=== PATIENT | male | born 1990 ===

== ENCOUNTER 2019-01-16 22:43 | Emergency (ER) | payer MEDICAID ==
[2019-01-17 00:33] LABS: Bilirubin,Urine NEG (Negative); Blood,Urine NEG (Negative); Color,Urine Straw (Yellow); Mucus,Urine FEW /HPF; Protein,Urine <15 mg/dL mg/dL (Negative); RBC,Urine < 1.0 /HPF (0.0-6.0); Urobilinogen,Urine < 2.0 mg/dL (<2.0)
[2019-01-17 00:48] LABS: Basophils % (Auto) 0.6 % (0.0-1.8); Eosinophils # (Auto) 0.1 K/mm3 (0.0-0.4); Eosinophils % (Auto) 2.2 % (0.0-4.3); Hematocrit 40.8 % (35.5-45.6); Hemoglobin 14.1 gm/dl (11.8-15.2); Lymphocytes # (Auto) 2.5 K/mm3 (1.2-5.4); Lymphocytes % (Auto) 47.5 % (13.4-35.0); Mean Corpuscular HGB Conc 35 % (32-34); Mean Corpuscular Volume 84 fl (84-94); Monocytes # (Auto) 0.3 K/mm3 (0.0-0.8); Monocytes % (Auto) 6.3 % (0.0-7.3); Platelet Count 177 K/mm3 (140-440); Red Blood Count 4.83 M/mm3 (3.65-5.03); Red Cell Distribution Width 14.7 % (13.2-15.2)
[2019-01-17 01:01] LABS: BUN/Creatinine Ratio 8; Blood Urea Nitrogen 9 mg/dL (9-20); Calcium 9.2 mg/dL (8.4-10.2); Hemolysis Index 13
[2019-01-17] MEDS ORDERED: K-DUR PO ONE (01:08)
[2019-01-17 01:14] LABS: Amphetamine Screen,Urine PRESUMPTIVE NEGATIVE; Benzodiazepines Screen,Urine PRESUMPTIVE NEGATIVE; Cannabinoid Screen,Urine PRESUMPTIVE NEGATIVE; Cocaine Screen,Urine PRESUMPTIVE NEGATIVE; Methadone Screen,Urine PRESUMPTIVE NEGATIVE; Opiate Screen,Urine PRESUMPTIVE NEGATIVE
--- NOTE | 2019-01-17 01:37 | Emergency Department Report ---
HPI - General Chief Complaint: Psych Time Seen by Provider: 01/16/19 23:01 - HPI HPI: 28-year-old -[place] male presents to the emergency department via police after he got into an altercation with his father just prior to arrival. The patient says that he is unsure what they were arguing about but he thinks it is regarding using a bulk intake worker. He admits to breaking down or taking down his father's door. The police were called because the father said that the patient was making threats towards him. The patient does admit to making a sweat once again says he is unsure what he said and says that he does not remember most of the altercation. He has a diagnosed history of schizoaffective disorder for which she takes Haldol and Depakote and Cogentin. He denies any suicidal ideations. He does admit to some occasional auditory and visual hallucinations but nothing currently. ED Past Medical Hx - Past Medical History Hx Psychiatric Treatment: Yes (schizo affective disorder) - Social History Smoking Status: Current Every Day Smoker Substance Use Type: None - Medications Home Medications: Home Medications Medication Instructions Recorded Confirmed Last Taken Type Benztropine [Cogentin] 2 mg PO BID 01/17/19 01/17/[address] [Depakote Dr] 1,250 tab PO HS 01/17/19 01/17/19 Unknown History Haloperidol Decanoate [Haldol 100 mg IM QMONTH 01/17/19 01/17/19 Unknown History Decanoate] ED Review of Systems ROS: Stated complaint: MH EVALUATION Other details as noted in HPI Comment: All other systems reviewed and negative Constitutional: denies: chills, fever Eyes: denies: eye pain, vision change ENT: denies: ear pain, throat pain Respiratory: denies: cough, shortness of breath Cardiovascular: denies: chest pain, palpitations Gastrointestinal: denies: abdominal pain, vomiting Genitourinary: denies: dysuria, discharge Musculoskeletal: denies: back pain, arthralgia Skin: denies: rash, lesions Neurological: denies: headache, weakness Psychiatric: other (violent and/or aggressive behavior). denies: suicidal thoughts Physical Exam - Physical Exam Vital Signs: Vital Signs 01/16/19 01/16/19 01/16/19 22:48 23:32 23:56 Temperature 98.1 F 98.1 F 98.6 F Pulse Rate 76 74 98 H Respiratory 18 16 15 Rate Blood Pressure 158/99 158/99 Blood Pressure 154/93 [Right] O2 Sat by Pulse 96 96 100 Oximetry Physical Exam: GENERAL: The patient is well-developed well-nourished. HEENT: Normocephalic. Atraumatic. Patient has moist mucous membranes. EYES: Extraocular motions are intact. NECK: Supple. Trachea is midline. CHEST/LUNGS: Clear to auscultation. There is no respiratory distress noted. HEART/CARDIOVASCULAR: Regular. There is no tachycardia. There is no obvious murmur. ABDOMEN: Abdomen is soft, nontender. Patient has normal bowel sounds. There is no abdominal distention. SKIN: Skin is warm and dry. NEURO: The patient is awake, alert, and oriented. The patient is cooperative. The patient has no focal neurologic deficits. The patient has normal speech. MUSCULOSKELETAL: There is no tenderness or deformity. There is no limitation range of motion. There is no evidence of acute injury. ED Course Vital Signs 01/16/19 01/16/19 01/16/19 22:48 23:32 23:56 Temperature 98.1 F 98.1 F 98.6 F Pulse Rate 76 74 98 H Respiratory 18 16 15 Rate Blood Pressure 158/99 158/99 Blood Pressure 154/93 [Right] O2 Sat by Pulse 96 96 100 Oximetry ED Medical Decision Making - Lab Data Result diagrams: 01/17/19 00:23 01/17/19 00:23 - Medical Decision Making This patient came to the emergency department via police after he had some type of altercation with his father. He admits to destroying some of the property in the house including breaking down a door. The patient also admits to making some type of threat towards his father. However the patient also says that he does not truly remember the altercation. He is currently calm and appropriate. It however it is concerning that he could have this aggressive and violent behavior and either block out the memory of it would be so nonchalant regarding it. His father called the police because of his behavior and the patient still lives with his father. For these reasons the patient has been made a 1013. Labs have been unremarkable. Vital signs stable throughout his ED course. The patient is medically cleared for psychiatric placement if necessary. - Differential Diagnosis schizophrenia, schizoaffective disorder, bipolar disorder, substance abuse Critical Care Time: No Critical care attestation.: If time is entered above; I have spent that time in minutes in the direct care of this critically ill patient, excluding procedure time. ED Disposition Clinical Impression: Aggressive behavior, Threatening to others Schizoaffective disorder Qualifiers: Schizoaffective disorder type: unspecified Qualified Code(s): F25.9 - Schizoaffective disorder, unspecified Disposition: [id number]/TX-65 PSY HOSP/PSY UNIT Is pt being admited?: No Condition: Stable Referrals: EDWINA MARY MD [Primary Care Provider] - 3-5 Days Time of Disposition: 02:24
[2019-01-17] MEDS ORDERED: GEODON ONE (06:38)
[2019-01-17] MEDS ORDERED: GEODON PO SCH (10:00)
[2019-01-17] MEDS ORDERED: COGENTIN PO SCH (10:00)
[2019-01-17 14:57] LABS: Alanine Aminotransferase 11 units/L (7-56)
--- NOTE | 2019-01-17 15:06 | Consultation ---
History of Present Illness - Reason for Consult Consult date: 01/17/19 Reason for consult: Mental Health Evaluation Requesting physician: GRACE SHOEMAKER - Chief Complaint Chief complaint: "I blacked out" - History of Present Psychiatric Illness 28-year-old -[place] male who presented to the ER for aggressive behavior with his father. Today the patient is calm and cooperative during the assessment. He stated that he got into an argument with his father and was brought to the ER. He stated that he cannot remember everything that happened, because he "blacked out." He stated that his relationship with his father is "up and down." He stated that he do not feel good about what happened prior to his arrival to the ER. He stated that he has hx of Schizoaffective DO, but denies that he was having a crisis. He stated that he is compliant with his medications. He stated that he will be going to [facility] for outpatient psy services in the future. He denies SI/HI's and AVH's. He denies a poor appetite and erratic sleep. Medications and Allergies Allergies Allergy/AdvReac Type Severity Reaction Status Date / Time No Known Allergies Allergy Verified 01/17/19 01:13 Home Medications Medication Instructions Recorded Confirmed Last Taken Type Benztropine [Cogentin] 2 mg PO BID 01/17/19 01/17/19 Unknown History Divalproex [[place]a Peacock] 1,250 tab PO HS 01/17/19 01/17/19 Unknown History Haloperidol Decanoate [Haldol 100 mg IM QMONTH 01/17/19 01/17/19 Unknown History Decanoate] Ziprasidone [Geodon] 1 tab PO DAILY 01/17/19 01/17/19 Unknown History Active Meds: Active Medications Benztropine Mesylate (Cogentin) 1 mg PO HS AKSHAT Ziprasidone (Geodon) 60 mg PO HS AKSHAT Past psychiatric history - Past Medical History Past Medical History: No medical history Past Surgical History: No surgical history - past Psychiatric treatment and history psychiatric treatment history: Seen in the outpatient setting for mental health. Denies a fam psy hx. - Social History Social history: lives with family Mental Status Exam - Vital signs Last Vital Signs Temp 98.0 F 01/17/19 09:00 Pulse 73 01/17/19 09:00 Resp 18 01/17/19 09:00 BP 137/85 01/17/19 09:00 Pulse Ox 98 01/17/19 09:00 - Exam Narrative exam: MSE: Appearance: calm, cooperative Behavior: regular eye contact Speech: regular rate and tone Mood: "okay" Affect: congruent to mood Thought Process: circumstantial Thought Content: denies SI/HI's with AVH's Motor Activity: ambulatory Cognition: A/Ox 3 Insight: variable to fair Judgment: variable to fair Results Result Diagrams: 01/17/19 00:23 01/17/19 00:23 Abnormal lab results 01/17/19 01/17/19 Range/Units 00: 00:23 MCHC 35 H (32-34) % Lymph % (Auto) 47.5 H (13.4-35.0) % Potassium 3.4 L (3.6-5.0) mmol/L All other labs normal. Assessment and Plan Assessment and plan: Impression: Today the patient is calm and cooperative during the assessment. Recommendation/Plan: Reevaluate the patient's 1013 in 24 hours. Start home medications Depakote 400 mg PO BID for mood, Geodn 60 mg PO HS for mood, and Cogentin 1 mg PO HS for EPS Prevention. Discussed possible metabolic side effects of Geodon with the patient. Give Geodon with food. Dispo: If the patient's 1013 is rescinded, he can follow up with [facility] for outpatient psy services. Will staff with Dr Joe Torres.
[2019-01-18 08:19] VITALS: BP 113/80
--- NOTE | 2019-01-18 09:58 | Progress Note ---
Subjective - Reason for Consult Consult date: 01/18/19 Reason for consult: Psychiatry Follow-up - Chief Complaint Chief complaint: "I feel better" 28-year-old -[place] male who presented to the ER for aggressive behavior with his father. Today the patient is calm and cooperative during the assessment. He stated that he feel much better today. He stated that he will not return home once discharged because he do not get along with is father. He denies SI/Hi's and AVH's. He denies any side effects of his medications. Per collateral information from the patient's father Loyd Alicea at [phone] he stated that he did get into a altercation with his son. He stated that his son got upset over something he told him. He stated that he does not understand mental health and its best that his son go to a [facility] when discharged. Mental Status Exam - Vital signs Last Vital Signs Temp 98.6 F 01/18/19 07:30 Pulse 67 01/18/19 07:30 Resp 18 01/18/19 07:30 BP 113/80 01/18/19 07:30 Pulse Ox 98 01/18/19 07:30 - Exam Narrative exam: MSE: Appearance: calm, cooperative Behavior: regular eye contact Speech: regular rate and tone Mood: "okay" Affect: congruent to mood Thought Process: circumstantial Thought Content: denies SI/HI's with AVH's Motor Activity: ambulatory Cognition: A/Ox 3 Insight: fair Judgment: fair Assessment and Plan Impression: Today the patient is calm and cooperative during the assessment. The patient is no threat to others. Recommendation/Plan: Recind 1013. Continue Depakote 500 mg PO BID for mood, Geodon 60 mg PO HS for mood, and Cogentin 1 mg PO HS for EPS Prevention. Discussed possible metabolic side effects of Geodon with the patient. Give Geodon with food. Dispo: The patient can follow up with [facility] for outpatient psy services. Will staff with Dr Khloe Torres.
[2019-01-18] MEDS ORDERED: GEODON PO SCH (22:00)
[2019-01-18] MEDS ORDERED: COGENTIN PO SCH (22:00)
== END 2019-01-18 14:24 | disposition home or self-care (01) ==
LOC: ED 22:43 → EEVIPCON 22:43 → ED 01-18 14:24
DX: F25.9 Schizoaffective disorder, unspecified (principal); R46.89 Other symptoms and signs involving appearance and behavior; F17.200 Nicotine dependence, unspecified, uncomplicated
CPT/HCPCS: 36415; 80048; 80164; 80307; 81001; 82150; 83690; 84075; 84450; 84460; 85025; 99284; G0480; 80320